=== PATIENT | female | born 1990 | race Hispanic/Latino ===

== ENCOUNTER 2021-06-04 11:37 | Emergency (ER) | payer MEDICAID, SELFPAY ==
--- NOTE | ~2021-06-04 | US_ITS ---
EXAMINATION: US OB <= 14 weeks fetus DATE: 06/04/2021 12:26 INDICATION: Vaginal bleeding TECHNIQUE: Real-time transabdominal and transvaginal obstetric ultrasound. FINDINGS: No prior studies for comparison. The uterus measures 9.3 x 7.5 x 6.9 cm. There is an intrauterine gestational sac, with pole renea ntified. There is a subchorionic hemorrhage measuring 2.4 x 3.2 x 2.1 cm. The crown rump length measu res 0.79 cm, which correlates with a estimated gestational age of 6 weeks 5 days. heart tones are identified measuring 139 BPM. The right ovary is within normal limits measuring 2.6 x 1.9 x 1.7 cm. The left ovary is not visualized. IMPRESSION: 1. SL IUP with an EGA of 6 weeks, 5 days (EDC by current ultrasound of 01/23/2022). 2: Moderate size subchorionic hemorrhage. Reviewed, dictated and finalized at location A. OPERATOR IMPRESSION: 1. SL IUP with an EGA of 6 weeks, 5 days (EDC by current ultrasound of 2). 2: Moderate size subchorionic hemorrhage.
[2021-06-04 11:49] VITALS: BP 121/64; PULSE 78; RESP 16; TEMP 36.2; O2SAT 99
[2021-06-04 12:16] LABS: Basophils Percent Auto 0.5 % (0.2-1.2); Eosinophils Absolute Auto 0.1 K/mm3 (0-0.3); Eosinophils Percent Auto 1.1 % (0-4.4); Hematocrit 38.9 % (37.0-47.0); Hemoglobin 12.9 g/dL (12.0-15.0); Immature Granulocyte Absolute 0.02 K/mm3 (0.00-0.031); Immature Granulocyte Percent A 0.4 % (0-0.5); Lymphocytes Absolute Auto 1.49 K/mm3 (0.9-3.2); Lymphocytes Percent Auto 26.9 % (18.3-44.2); Mean Corpuscular HGB Conc 33.2 g/dl (32-36); Mean Corpuscular Hemoglobin 30.4 pg (26-34); Mean Corpuscular Volume 91.5 fl (80-100); Mean Platelet Volume 10.6 fl (7.4-10.4); Monocytes Absolute Auto 0.3 K/mm3 (0.1-0.6); Monocytes Percent Auto 5.4 % (2.6-8.5); Neutrophils Absolute Auto 3.6 K/mm3 (1.3-6.7); Neutrophils Percent Auto 65.7 % (45.5-73.1); Platelet Count Result 244 k/mm3 (150-375); Red Blood Count 4.25 M/mm3 (4.2-5.4); Red Cell Distribution Width 12.2 % (11.5-14.5); White Blood Count 5.5 K/mm3 (4.5-10.0)
[2021-06-04 12:25] LABS: Add Urine Microscopic? YES; Appearance Urine Cloudy (Clear); Bacteria Urine Trace /hpf; Bilirubin Urine Negative (Negative); Blood Urine 1+ (Negative); Color Urine Yellow (Yellow); Glucose Urine UA Negative (Negative); Ketones Urine Negative (Negative); Leukocyte Esterase Ur 2+ LEU/UL (Negative); Nitrate Urine Negative (Negative); Protein Urine Negative (Negative); Specific Grav Ur 1.009 (1.001-1.035); Squamous Epithelial Cell Urine Few /hpf (Few); Urobilinogen Urine Negative mg/dL (<2.0); WBC Urine 0-3 /hpf
[2021-06-04 12:55] LABS: Alanine Aminotransferase 9 U/L (4-35); Albumin Level 4.5 g/dL (3.5-5.1); Alkaline Phosphatase 58 U/L (38-126); Anion Gap 9 mmol/L (8-16); Aspartate Amino Transferase 24 U/L (14-36); Bilirubin,Total 0.2 mg/dL (0.2-1.3); Blood Urea Nitrogen 6 mg/dL (7-17); Calcium 9.2 mg/dL (8.4-10.2); Carbon Dioxide 26 mmol/L (22-30); Chloride 103 mmol/L (98-107); Estimated CRCL calculation 116 ml/min; Estimated Glomerular Filt Rate > 60; Glucose 98 mg/dL (65-110); Potassium 3.6 mmol/L (3.4-5.0); Sodium 138 mmol/L (137-145)
--- NOTE | 2021-06-04 15:07 | ED.GENADULT ---
HPI - General Adult General Chief complaint: Vaginal Bleeding <Fallon Wild PA-C - Last Filed: 06/04/21 17:01> Stated complaint: not feeling well <Fallon Wild PA-C - Last Filed: 06/04/21 17:01> Time Seen by Provider: 06/04/21 11:56 <Fallon Wild PA-C - Last Filed: 06/04/21 17:01> Source: patient and family () <ERICK Mendoza Last Filed: 06/04/21 17:01> Mode of arrival: ambulatory <Fallon Wild PA-C - Last Filed: 06/04/21 17:01> Limitations: no limitations <Fallon Wild PA-C - Last Filed: 06/04/21 17:01> History of Present Illness HPI narrative: Patient is 22-year-old G1, P0 female presenting with chief complaint of vaginal bleeding with wiping that she has noted over the past 2 days. Patient reports she has also noticed some pain and cramping. Patient reports that she had a positive home test and has not had a menstrual period since April 10. Patient has not yet had an ultrasound confirming intrauterine and has not yet seen a CASE SUPERVISOR. Patient states that she has not made an appointment to be seen at [facility] on the 18th of this month but has not yet been seen by provider. Patient denies passing large blood clots or -like tissues. Patient denies any fever, chills, vomiting, abdominal pain, weakness or any other emergent symptoms. <Fallon Wild PA-C - Last Filed: 06/04/21 17:01> Related Data Home medications: Home Medications Medication Instructions Recorded Confirmed No Home Medications 06/04/21 06/04/21 <Fallon Wild PA-C - Last Filed: 06/04/21 17:01> Allergies/adverse reactions: Allergies Allergy/AdvReac Type Severity Reaction Status Date / Time No Known Allergies Allergy Verified 06/04/21 12:09 <ERICK Mendoza Last Filed: 06/04/21 17:01> Review of Systems Review of Systems: CONSTITUTIONAL: Denies fever, chills, or sweats. EYES: Denies visual changes, redness, or discharge. ENT: Denies rhinorrhea, congestion, sore throat, or otalgia. CARDIOVASCULAR: Denies chest pain, palpitations, or edema. RESPIRATORY: Denies cough or dyspnea. GASTROINTESTINAL: Denies abdominal pain, nausea, vomiting, or diarrhea. GENITOURINARY: Reports vaginal bleeding denies dysuria or hematuria. SKIN: Denies rash or itching. MUSCULOSKELETAL: Denies back pain, joint pain, or myalgia. NEUROLOGIC: Denies headache, numbness, dizziness, or weakness. PSYCHIATRIC: Denies anxiety or depression. <Fallon Wild PA-C - Last Filed: 06/04/21 17:01> Exam Narrative: GENERAL: Well-appearing, well-nourished, and in no acute distress. HEAD: Normocephalic, atraumatic. EYES: PERRLA and EOMI. NECK: Supple. No adenopathy or masses. CHEST: Clear to auscultation. No respiratory distress. No wheezes rales or rhonchi HEART: Regular rate and rhythm. No murmur heard. Normal peripheral pulses. ABDOMEN: Soft, nontender, nondistended, normal active bowel sounds. PELVIC: Patient refused. EXTREMITIES: Normal range of motion. No edema. SKIN: Warm, dry, no rash. NEURO: No focal deficits. Alert and oriented x3. PSYCH: Normal mood and affect. <Fallon Wild PA-C - Last Filed: 06/04/21 17:01> Course Vital Signs Vital signs: Vital Signs Temperature 97.1 F L 06/04/21 11:49 Pulse Rate 78 06/04/21 11:49 Respiratory Rate 16 06/04/21 11:49 Blood Pressure 121/64 06/04/21 11:49 Pulse Oximetry 99 06/04/21 11:49 Temperature 97.1 F L 06/04/21 11:49 Pulse Rate 72 06/04/21 15:49 Respiratory Rate 18 06/04/21 15:49 Blood Pressure 126/78 06/04/21 15:49 Pulse Oximetry 99 06/04/21 15:49 <Fallon Wild PA-C - Last Filed: 06/04/21 17:01> Medical Decision Making MDM Narrative Medical decision making narrative: Patient refused. Patient expressed discomfort with stress. Patient lab work. Patient [facility] 3 times without callback provider. Patient is ready
[2021-06-04 15:49] VITALS: BP 126/78; PULSE 72; RESP 18; O2SAT 99
== END 2021-06-04 15:50 | disposition home or self-care (01) ==
PROVIDERS: Physician Assistant; Emergency Provider General Practice
DX: O46.8X1 Other antepartum hemorrhage, first trimester (principal); Z3A.01 Less than 8 weeks gestation of pregnancy
CPT/HCPCS: 36415; 76801; 80053; 81001; 84702; 85025; 85461; 99284

== ENCOUNTER 2021-12-28 06:15 | Observation (INO) | payer OTHER, SELFPAY ==
[2021-12-28] VITALS (15 sets, daily range): BP systolic 96–111; BP diastolic 54–75; PULSE 69–90; TEMP 36.7–36.8; BMI 31.0
--- NOTE | ~2021-12-28 | US_ITS ---
EXAMINATION: US OB limited w BPP DATE: 12/28/2021 12:41 INDICATION: Variable decelerations. Third trimester. TECHNIQUE: Real-time pelvic ultrasound was performed. COMPARISON: None. FINDINGS: There is a single living fetus in vertex presentation. The placenta is posterior. heart rate i s 142 beats per minute (bpm). The amniotic fluid index is 10.6 cm, which is normal. Biophysical profile performed by the technologist: breathing (30 sec sustained breathing in 30 minutes): 2 out of 2 movement (3 gross body movements in 30 minutes): 2 out of 2 tone (one episode of smefwmj-vklafuwyu-rkbkvyi limb movement): 2 out of 2 Amniotic fluid pocket (2 cm): 2 out of 2 Total score: 8 out of 8 IMPRESSION: 1. Single living fetus in vertex presentation. 2. Biophysical profile 8 out of 8. Reviewed, dictated and finalized at location A.
--- NOTE | 2021-12-28 09:03 | PC.NURSE ---
Using discharge planner line to preadmit pt and do admission information in case pt stays for labor. (Got the same discharge planner again- Sonal ID #[id number])
[2021-12-28 10:51] LABS: Appearance Urine Clear (Clear); Bilirubin Urine Negative (Negative); Blood Urine 2+ (Negative); Color Urine Yellow (Yellow); Glucose Urine UA Negative (Negative); Ketones Urine Negative (Negative); Leukocyte Esterase Ur 1+ LEU/UL (Negative); Nitrate Urine Negative (Negative); Protein Urine Negative (Negative); Specific Grav Ur 1.015 (1.001-1.035); Urobilinogen Urine 0.2 mg/dL (<2.0)
[2021-12-28 11:00] LABS: Mucus Urine Rare /lpf; RBC Urine 0-2 /hpf (0-2); Squamous Epithelial Cell Urine Rare /hpf (Few); WBC Urine 0-3 /hpf
[2021-12-28 11:03] LABS: Add Urine Microscopic? YES
--- NOTE | 2021-12-28 11:52 | PC.NURSE ---
Alina Woo CNM updated on little change to cervix, UA just shows blood. Discussed mostly reactive FHT's with occasional variable decel and 1-2 possible late decels. Order received for BPP and ISABEL.
--- NOTE | 2021-12-28 14:38 | PC.NURSE ---
Using diplomatic interpreter/translator line ( Vinay; ID#[id number]) to go over discharge instructions with pt.
--- NOTE | 2022-01-02 07:40 | PM.OBTRLD ---
OB - Triage/Final Diagnosis Visit Information Date of evaluation: 12/28/21 Reason for evaluation: threatened labor Comments/Additional reasons for admission: I have assessed the risk for this patient, July Morelos, and determined that she would benefit from observation care. Evaluation Laboratory results: Laboratory Tests 12/28/21 10:23 Urine Color Yellow Urine Appearance Clear Urine pH 6.0 Ur Specific [place] 1.015 Urine Protein Negative Urine Glucose (UA) Negative Urine Ketones Negative Ur Blood (Man) 2+ H Urine Nitrate Negative Urine Bilirubin Negative Urine Urobilinogen 0.2 Leukocyte Esterase Rfl 1+ H Urine RBC 0-2 Urine WBC 0-3 Ur Squamous Epith Cells Rare Urine Mucus Rare
== END 2021-12-28 14:50 | disposition home or self-care (01) ==
PROVIDERS: Advanced Practice Midwife; Admitting Provider Obstetrics & Gynecology; Visit Provider Obstetrics & Gynecology
DX: O47.9 False labor, unspecified (principal); Z3A.00 Weeks of gestation of pregnancy not specified
CPT/HCPCS: 76815; 76819; 81001; G0378; G0379

== ENCOUNTER 2021-12-29 02:51 | Inpatient (IN) | payer OTHER, SELFPAY ==
[2021-12-29] VITALS (111 sets, daily range): BP systolic 85–121; BP diastolic 45–80; PULSE 63–122; RESP 16–18; TEMP 36.4–37.1; O2SAT 94–100; BMI 30.4; BMI 31.0
[2021-12-29] MEDS: fentaNYL CITRATE INJ (*CRX) 100 MCG/2 ML VIAL 50 MCG IV PUSH (03:45)
[2021-12-29] MEDS: LACTATED RINGERS 1,000 ML 999 ML IV CONT (03:46)
[2021-12-29] MEDS: LACTATED RINGERS 1,000 ML 125 ML IV CONT ×4 (04:03→08:23)
[2021-12-29] MEDS: fentaNYL CITRATE INJ (*CRX) 100 MCG/2 ML VIAL IV PUSH (05:14)
--- NOTE | 2021-12-29 07:40 | LDADM ---
This patient, July Morelos, was admitted to Labor/Delivery/Recovery 105 on 12/29/21 at 07:40. Plans for labor, pain management and were discussed with patient. Patient/family oriented to hospital policies and general routines including ID bracelet, bed and alarms, visiting hours, pain management, procedures, bathroom and other care routines, personal items, smoking policy, room service/diet and guest tray routines, security routines, and visiting hours. Patient/Family are encouraged to report perceived risks to care and to ask questions if they do not understand what they are told or what they should do. See OBIX for further documentation.
[2021-12-29] MEDS: AMPICILLIN 2 GM/NS 100 ML 2 GM/100 ML BAG IVPB (08:00)
[2021-12-29 08:09] LABS: Basophils Percent Auto 0.4 % (0.2-1.2); Eosinophils Absolute Auto 0.1 K/mm3 (0-0.3); Eosinophils Percent Auto 0.9 % (0-4.4); Hematocrit 31.8 % (37.0-47.0); Hemoglobin 10.3 g/dL (12.0-15.0); Immature Granulocyte Absolute 0.05 K/mm3 (0.00-0.031); Immature Granulocyte Percent A 0.7 % (0-0.5); Lymphocytes Absolute Auto 1.68 K/mm3 (0.9-3.2); Mean Corpuscular HGB Conc 32.4 g/dl (32-36); Mean Corpuscular Hemoglobin 28.9 pg (26-34); Mean Corpuscular Volume 89.3 fl (80-100); Mean Platelet Volume 12.1 fl (7.4-10.4); Monocytes Absolute Auto 0.4 K/mm3 (0.1-0.6); Monocytes Percent Auto 4.6 % (2.6-8.5); Neutrophils Absolute Auto 5.5 K/mm3 (1.3-6.7); Neutrophils Percent Auto 71.4 % (45.5-73.1); Platelet Count Result 219 k/mm3 (150-375); Red Blood Count 3.56 M/mm3 (4.2-5.4); Red Cell Distribution Width 13.7 % (11.5-14.5); White Blood Count 7.6 K/mm3 (4.5-10.0)
[2021-12-29] MEDS: OXYTOCIN 30 UNITS/NS 500 ML 30 UNITS/500 ML BAG 6 UNITS IV CONT (08:29)
--- NOTE | 2021-12-29 08:50 | WPDANESEPP ---
Anes - Eval Pre Procedure Procedure: Labor Epidural Date/Time: 12/29/21 08:50 Surgeon: Pb Preop Diagnosis: Labor Pain Pre Op Diagnosis: contractions Patient Data Age: 31 Gender: F Height: 1.6 m Weight: 79.5 kg Last Vital Signs Temp 36.4 C L 12/29/21 03:16 Pulse 74 12/29/21 08:04 BP 108/70 12/29/21 08:04 Pulse Ox 100 12/29/21 05:00 Allergies Allergy/AdvReac Type Severity Reaction Status Date / Time No Known Allergies Allergy Verified 06/04/21 12:09 Home Medications Medication Instructions Recorded Confirmed Type No Home Medications 06/04/21 12/28/21 History Laboratory Tests 12/29/21 12/29/21 07:58 07:58 WBC 7.6 K/mm3 K/mm3 (4.5-10.0) RBC 3.56 M/mm3 L M/mm3 (4.2-5.4) Hgb 10.3 g/dL L g/dL (12.0-15.0) Hct 31.8 % L % (37.0-47.0) MCV 89.3 fl fl (80-100) MCH 28.9 pg pg (26-34) MCHC 32.4 g/dl g/dl (32-36) RDW 13.7 % % (11.5-14.5) Plt Count 219 k/mm3 k/mm3 (150-375) MPV 12.1 fl H fl (7.4-10.4) Immature Gran % (Auto) 0.7 % H % (0-0.5) Neut % (Auto) 71.4 % % (45.5-73.1) Lymph % (Auto) 22.0 % % (18.3-44.2) [place] % (Auto) 4.6 % % (2.6-8.5) Eos % (Auto) 0.9 % % (0-4.4) Baso % (Auto) 0.4 % % (0.2-1.2) Lymph # (Auto) 1.68 K/mm3 K/mm3 (0.9-3.2) [place] # (Auto) 0.4 K/mm3 K/mm3 (0.1-0.6) Eos # (Auto) 0.1 K/mm3 K/mm3 (0-0.3) Baso # (Auto) 0.0 K/mm3 K/mm3 (0.0-0.1) Abs Immat Gran (auto) 0.05 K/mm3 H K/mm3 (0.00-0.031) Absolute Neuts (auto) 5.5 K/mm3 K/mm3 (1.3-6.7) Absolute Nucleated RBC 0.0 K/mm3 K/mm3 (0.0-0.012) Nucleated RBC % 0.0 % % (0.0-0.2) RPR Pending Patient hx anesthesia problems: none Family hx anesthesia problems: none Results Review: All pre-operative results and documents have been reviewed as part of the pre-operative evaluation. [facility] Family History Family History Other No pertinent family history in first degree relatives Social History Social History Smoking status: Never smoker Second hand tobacco smoke exposure: No Substance use: never Spiritual care concerns: No Exam Day of Procedure 12/29/21 08:50 Patient weight: normal Heart: regular rate and rhythm Lungs: normal air movement Airway: Mallampati scale class II Neurological: alert and oriented Other findings: Paraguayan speaking only
--- NOTE | 2021-12-29 09:35 | WPDHPUPDATE1 ---
History and Physical Update Update Date/Time: 12/29/21 09:35 THis patient is a 31 y/o G1 at 38 weeks gestation who is in labor, AROM was performed. Clear . Pitocin was started. Epidural is placed. . Expectant management History and Physical has been reviewed, including an updated exam of the patient. There are NO changes in the patient's condition. Risks, benefits, and alternatives have been discussed and questions answered. Patient agrees to proceed with procedure.
[2021-12-29] MEDS: AMPICILLIN 1 GM/NS 50 ML 1 GM/50 ML BAG IVPB (12:02)
--- NOTE | 2021-12-29 13:30 | PM.OBPRVD ---
OB - Delivery Note Procedure Procedure: Delivery augmentation: Rupture of Membranes and Pitocin Delivery monitor: External FHT and External Uterine Route of delivery: Laceration Description: Perineal - 2nd Degree Delivery repair: vicryl Quantitative Blood Loss (ml): 169 Anesthesia type: Epidural Disposition: Floor Complications: none Baby Date of : 12/29/21 Time of : 13:13 Weeks of gestation at delivery: 37 gender: Female Weight (pounds): 5 Weight (ounces): 13 presentation: vertex Placenta delivery description: Spontaneous Cord Vessel Description: 3 Vessels score one minute: 9 score five minutes: 9
[2021-12-29] MEDS: IBUPROFEN 600 MG TABLET PO ×2 (13:50→20:28)
[2021-12-29] MEDS: OXYTOCIN 30 UNITS/NS 500 ML 30 UNITS/500 ML BAG 125 UNITS IV CONT (13:50)
[2021-12-29] MEDS: BENZOCAINE 20% AER SPR (*SP) 56 GM CAN 1 SPRAY TOPICAL (17:11)
[2021-12-29] MEDS: WITCH HAZEL 40 PADS 1 PAD TOPICAL (17:11)
[2021-12-29] MEDS: ACETAMINOPHEN 325 MG TABLET 650 MG PO ×2 (17:30→23:15)
--- NOTE | 2021-12-29 19:21 | OBPPTRN ---
Patient was transferred to post room #283 at 1734. This nurse did this patient's assessment and oriented mother to plan of care, safety and security measures, oriented to room and and surroundings, and welcome packet with the use of the ukrainian language line clinical services consultant. Courtney states understanding and knows to point to the language line when she desires to discuss needs or concerns with me. Mother also understands to call out before ambulating to the bathroom. Call light within reach.
[2021-12-30 03:45] VITALS: BP 91/52; PULSE 99; RESP 16; TEMP 36.9
[2021-12-30 04:06] LABS: Hemoglobin 8.6 g/dL (12.0-15.0)
--- NOTE | 2021-12-30 04:30 | PC.NURSE ---
12/30/2021 at 0340. I entered mother's room and found mother with her eyes closed and baby laying next to her on a pillow. I cautioned the parents, with the father of the baby interpreting, why baby should NOT sleep with the parents because of the danger of suffocation and harm that could occur to baby. I asked if the parents have a crib for baby and the father states, Not yet. The father of baby states they were suppose to have a baby shower today but baby came early. I told the parents we will have social service talk to the parents to see if we can help them. Parents state understanding of the importance of having baby sleep on a firm surface and not sleeping with them in the parent's bed.
[2021-12-30 08:00] VITALS: BP 91/57; PULSE 69; RESP 16; TEMP 36.9; O2SAT 100
[2021-12-30] MEDS: POLYSACCHARIDE IRON COMPLEX 150 MG CAPSULE PO ×2 (08:00→16:34)
[2021-12-30] MEDS: IBUPROFEN 600 MG TABLET PO ×3 (08:01→20:55)
[2021-12-30] MEDS: ACETAMINOPHEN 325 MG TABLET 650 MG PO ×3 (08:01→20:57)
[2021-12-30] MEDS: DOCUSATE SODIUM 100 MG CAPSULE PO ×2 (08:01→16:34)
[2021-12-30] MEDS: MULTIVIT/MIN/PREN/FOL AC/IRON TABLET 1 TAB PO (08:01)
--- NOTE | 2021-12-30 10:39 | PM.OBPNVD ---
OB - PN: Subj Subjective Date/time seen: 12/30/21 10:39 Patient comments: no complaints, pain well controlled, incisional pain, tolerating diet and flatus present OB - PN: Obj Data Labs CBC & Chem 7: 12/30/21 03:52 Labs: Laboratory Results - last 24 hr 12/30/21 03:52 Hgb 8.6 L Hct 27.0 L OB - PN A/P Plan day: 1 Plan: routine care Comments: No problems, routine care Time Spent With Patient Time: Total time spent is greater than 50% in coordination of care (as documented) at patient's floor/unit and/or counseling patient: Exam Const: General: comfortable, no acute distress and alert Resp: Effort & Inspection: normal respiratory effort Auscultation: no crackles, no rales and no rhonchi Cardio: Rate: regular rate Heart sounds: no click, no murmurs and no rubs GI: Inspection: non-distended GI Palp: No Tenderness to palpation present (GI) Auscultation: normal bowel sounds Other: Incision - CDI Extrem: General: normal to inspection, no pedal edema and no calf tenderness
[2021-12-30 12:20] VITALS: BP 90/58; PULSE 77; RESP 16; TEMP 37.2; O2SAT 99
--- NOTE | 2021-12-30 15:09 | PCCCNOTE ---
Care Coordination met with pt and FOB to discuss discharge planning. Pt. is Georgian speaking. CC used [employer] (Suzan [id number]). Pt. states that her D/C plan will be to return home with baby and FOB. Pt. was in process of planning her baby shower so she does not have everything needed. Pt. states she does not have a crib or bottles. Pt. has been provided a pack and play and a basket. Pt. states she has no other concerns at this time. She is current with [facility] and has an appointment for baby with Dr. Nickerson. Pt. denies any previous DCFS history. No further need for CC services.
--- NOTE | 2021-12-30 20:30 | PC.NURSE ---
2030: Assumed care of pt at this time.
[2021-12-30 20:50] VITALS: BP 100/70; PULSE 80; RESP 16; TEMP 36.8; O2SAT 99
[2021-12-30] MEDS: WITCH HAZEL 40 PADS 1 PAD TOPICAL (21:00)
[2021-12-30] MEDS: LANOLIN (LANSINOH) 7.5 GM CREAM 1 APPLIC TOPICAL (21:00)
--- NOTE | 2021-12-31 05:49 | PC.NURSE ---
Patient viewed the Urdu discharge video Mother & Baby Care, The First Two Weeks . Patient was given the opportunity and encouraged to ask questions. Patient verbalized understanding of information shared and has been given the mother/baby guide for home reference. Pt is able to communicate her needs effectively through assistance of her significant other. All education provided with Urdu translation from support person this shift. Pt verbalized understanding of info provided.
--- NOTE | 2021-12-31 05:51 | PC.NURSE ---
Sagar Ann [facility]. 04/26/2019, model [id number] carseat provided to parents for safe transport. Encouraged to register carseat with registration card provided with carseat. Father verbalized understanding of info provided.
[2021-12-31] MEDS: ACETAMINOPHEN 325 MG TABLET 650 MG PO (07:04)
[2021-12-31] MEDS: IBUPROFEN 600 MG TABLET PO (07:05)
[2021-12-31] MEDS: MULTIVIT/MIN/PREN/FOL AC/IRON TABLET 1 TAB PO (07:06)
[2021-12-31] MEDS: DOCUSATE SODIUM 100 MG CAPSULE PO (07:06)
[2021-12-31] MEDS: POLYSACCHARIDE IRON COMPLEX 150 MG CAPSULE PO (07:06)
[2021-12-31 07:12] VITALS: BP 98/67; PULSE 56; RESP 16; TEMP 36.7; O2SAT 100
--- NOTE | 2021-12-31 08:13 | PM.OBPNVD ---
OB - PN: Subj Subjective Date/time seen: 12/31/21 08:13 Patient comments: no complaints, pain well controlled and tolerating diet OB - PN: Obj Data Labs CBC & Chem 7: 12/30/21 03:52 OB - PN A/P Plan day: 2 Plan: routine care and discharge home Time Spent With Patient Time: Total time spent is greater than 50% in coordination of care (as documented) at patient's floor/unit and/or counseling patient: Exam Const: General: comfortable and no acute distress Resp: Effort & Inspection: normal respiratory effort Auscultation: no rales, no rhonchi and no wheezes Cardio: Rate: regular rate Heart sounds: no click, no murmurs and no rubs GI: GI Palp: Yes Soft to palpation and No Tenderness to palpation present (GI) Auscultation: normal bowel sounds Extrem: General: normal to inspection, no pedal edema and no calf tenderness
--- NOTE | 2021-12-31 08:18 | PM.OBDSVD ---
DS: Admitting Diagnosis Discharge Date 12/31/21 Admitting Diagnosis term DS: Discharge Diagnosis Discharge Diagnosis (1) Term : Code(s): Z34.90 - Encounter for supervision of normal , unspecified, unspecified trimester Status: Acute OB - DS: Summary OB Procedures : None OB Procedures Intrapartum: Spontaneous Vag Delivery OB Procedures: : None Time Spent with Patient Time attestation: Total time spent providing and/or coordinating discharge services: Discharge Plan Discharge Discharging Clinician: Austin Ambriz Patient Disposition: Home, Self-Care Activity: pelvic rest Diet: regular Patient Instructions: Antibiotic Form Stand Alone Forms: General Discharge Information Follow-up/Referrals: Austin Ambriz MD [Physician] - Discharge Medications: No Action No Home Medications Date of admission: 12/29/21 07:40 Primary Care Provider: PHYSICIAN,STRAIGHTENING ROLL OPERATOR Admitting Provider: Austin Ambriz Attending physician on admission: Austin Ambriz Condition: Stable
[2021-12-31 10:35] LABS: Rapid Plasma Reagin Non-Reactive (NonReactive)
[2022-01-01 10:52] VITALS: BP 97/65; PULSE 69; RESP 18; TEMP 37.3; O2SAT 100
== END 2021-12-31 11:52 | disposition home or self-care (01) | DRG 560 ==
LOC: ANHLDR 07:42 → ANHOB2 17:57
PROVIDERS: Admitting Provider Obstetrics & Gynecology; Visit Provider Obstetrics & Gynecology
DX: O99.824 Streptococcus B carrier state complicating childbirth (principal); O70.1 Second degree perineal laceration during delivery; O76 Abnormality in fetal heart rate and rhythm complicating labor and delivery; Z3A.37 37 weeks gestation of pregnancy; Z37.0 Single live birth
CPT/HCPCS: 36415; 85014; 85018; 85025; 86592; 86850; 86900; 86901; A9270; J0290; J2590; J2795; J3010; J7120

== ENCOUNTER 2025-06-17 14:50 | Emergency (ER) | payer OTHER, SELFPAY ==
[2025-06-17] VITALS (11 sets, daily range): BP systolic 92–106; BP diastolic 52–71; PULSE 79; RESP 18; TEMP 36.3; O2SAT 100
--- NOTE | ~2025-06-17 | US_ITS ---
EXAMINATION: Ultrasound OB, Limited: DATE: 06/17/2025. INDICATION: 35-year-old with last menstrual period on 01/16/2026 and posterior test. 2, para 1. No mention of vaginal bleeding. TECHNIQUE: Transabdominal ultrasound of the uterus with Doppler. were obtained. COMPARISON: None. FINDINGS: Intrauterine uterine gestational sac with crown-rump length of 9.1 mm corresponding to 6 weeks and 6 days. Suspected small hypoechoic area in the inferior aspect of the sac suspicious of small subchorionic bleed. pole and yolk sac are visualized. heart rate at 139 bpm. Normal right and left ovaries with perfusion. 2.8 cm sized physiologic cyst of the right ovary. IMPRESSION: 1. Intrauterine uterine gestational sac with live fetus, 6 weeks 6 days in size. heart rate 1 39 bpm. 2. Suspected small hypoechoic area surrounding the gestational sac on the inferior aspect,? Small subchorionic bleed. Continued ultrasound follow-up is recommended. 3. Normal adnexa with normal perfusion of the ovaries. 2.8 cm cyst of right ovary. Reviewed, dictated and finalized at location [facility] [facility] IMPRESSION: 1. Intrauterine uterine gestational sac with live fetus, 6 weeks 6 days in size . heart rate 1 39 bpm. 2. Suspected small hypoechoic area surrounding the gestational sac on the infer ior aspect,? Small subchorionic bleed. Continued ultrasound follow-up is recomm ended. 3. Normal adnexa with normal perfusion of the ovaries. 2.8 cm cyst of right ova ry.
--- OUTSIDE RECORDS SUMMARY | 2025-06-17 14:53 | XMS_ITS | Clinical Summary ---
Author Organization [facility] Care Team Providers Care Panel Laminator Name Role Phone Unavailable Primary Care Provider Unavailabl e Social History Tobacco Use Types Packs/Day Years Used Date Smoking Tobacco: Never Assessed Comments Unknown Sex and Gender Information Value Date Recorded Sex Assigned at Not on file Legal Sex Female 3:08 PM [employer] Gender Identity Not on file Sexual Orientation Not on file Plan of Treatment Health Maintenance Due Date Last Done Comments Hepatitis C Virus (HCV) Screening 1992 TdaP Immunization 1992 Hepatitis B Immunization (1 of 3 - 19+ 3-dose series) 2011 Pap Smear 2013 Human Papillomavirus (HPV) Immunization (1 - 3-dose SCDM series) 2019 Cervical Cancer Screening (CCS) 2022 HPV/Cotest 2022 Influenza Immunization (#1) 2025 SARS-COV-2 Immunization ( season) 2025 Respiratory Syncytial Virus (RSV) Immunization (Adult) (1 - 1-dose 75+ series) 2067 Meningococcal Immunization (ACWY) Aged Out No longer eligible based on patient's age to complete this topic Pneumococcal Immunization Combined Aged Out No longer eligible based on patient's age to complete this topic Rotavirus Immunization Aged Out No lo nger eligible based on patient's age to complete this topic
--- OUTSIDE RECORDS SUMMARY | 2025-06-17 14:53 | XMS_ITS | Data Portability ---
Author Organization [facility] [place] Address [address] [place] [address] Assessment Encounter Date Assessment Date Assessment LastModified by Organization Details LastModified Time 08/13/2022 08/13/2022 healthy female exam patient declines std testing pap done mammogram at 42 contraception -declines. aware that with periods back could conceive. FU 1 year or prn [email or web address] Not available 08/13/2022 19:21:53 Plan of Treatment Reminders Order Date Submit Date Provider Last Modified By Organization Details Last Modified Time Details Appointments U/S OB DATING/ VIABILI TY 2024 11:00A M ULTRASOUND Not available Not available Not available OB SCREEN 2024 11:30A M YURI ROBERTS MD Not available Not available Not available Lab None recorde d. Referral None recorde d. Procedures None recorde d. Surgeries None recorde d. Imaging US, obstetr ic, follow- up 2021 022 [facility], [address], [address], [place], [address], 12/19/2021 08:46:52 Medication Orders Difluca n 150 mg tablet 2021 022 [facility][id number], [address] [facility], [place], [place], [id number], 08/13/2022 09:12:30 Patient TargetsNo targets recorded. Patient InstructionsNo instructions recorded. Reason for Referral None Reported. Results Created Date Observation Date Name Description Value Unit Range Abnormal Flag Note LastModifiedBy Organization Detail LastModifiedTime 12/19/1912/1812/18/2021 CULTU RE: GROUP B STREP SCREE N, REFLE X SUSCE PTIBI LITY result report SEE RESULT S BELOW abnormal Test: Cultu re: Group B Strep , Refle x Susce ptibi lity ([facility]/ [facility]/K H/V[facility] ) Speci men Sourc e: Vagin a/Rec josee Speci men Type: Vagin al/Re ctal Speci men Date: 2021 4:28 PM Resul t Date: 2021 9:47 AM Resul t Statu s: Final resul t Abnor mal: Yes Resul ting Lab: [facility] [address] [facility] [address] Tel: CULTU RE ----- ----- ----- --- Posit luis for Group B (Abno rmal) Strep tococ cus agala ctiae (Grou p B) (Abno rmal) Clind amyci n is presu med to be resis tant based on detec tion of induc ible clind amyci n resis tance (?Dte st posit luis?) .? Eryth romyc in = resis tant. Cefaz aldo may be used for intra partu m proph ylaxi s in penic illin -yohnaa rgic women at low risk, and Vanco mycin is recom brian d for women at high risk for anaph ylaxi s. Susce ptibi lity testi ng is not neces beltran for these drugs . Not Available [facility] (Lab) [address], [place], [address], 12/22/2021 10:49:32 08/13/19 23 08/13/2022 IMAGE GUIDE D PAP AND HPV REGAR DLESS image guided Pap, HPV regardless of Pap result SEE RESULT S BELOW CASE REPOR T: Cytol ogy Gynec ologi christian Repor t Case: [id number] [address] Provi oh: Parris Painting MD Colle cted: 08/13 1645 Order ing Locat ion: [place] Patho logy Recei racheal: 08/14 0644 First Scree n: Nelly [place], [place] Rescr een: Isabella Keating Speci men: Scree ephraim Pap - Image d, Cervi x STATE MENT OF ADEQU ACY: Satis facto ry for evalu ation Trans forma tion zone compo nent absen t The absen ce of an endoc ervic al compo nent was confi rmed by an addit ional brijesh ner. FINAL DIAGN OSIS: Negat luis for Intra epith elial Lesio n or Janice ballard (NIL) . Funga l organ isms morph ologi love consi stent with Catherine da spp. Elect denilson almaguer sheldon d by Isabella Keating on 2022 at 6:47 PM ----- ----- ----- ----- ----- ----- ----- ----- ----- ----- ----- ----- ----- ----- ----- ----- ----- ---- HPV RESUL TS: HPV mRNA E6/E7 : No HPV mRNA Detec francisca NOTE: This high risk HPV mRNA assay detec ts fourt een high- risk HPV types (16, 18, 31, 33, 35, 39, 45, 51, 52, 56, 58, 59, 66, 68) witho ut diffe renti ation . COMME NT: Note: This speci men was revie wed by a Cytot echno logis t and/o r Patho logis t (as indic ated in this repor t) after evalu ation using the Thinp rep Imagi ng Syste m. CLINI CHRISTIAN INFOR MATIO N: Menst rual Statu s: LMP (if appli cable ): Clini christian Histo ry/Pr eviou s Pap: Type of Neopl angel (if appli cable ): Signi fican t Clini christian Findi ngs: Other Histo ry: Hormo loyd (if appli cable ): PAP EDUCA NASIM L NOTE: The Pap Test is a scree ephraim test with an inher ent false negat luis rate. Liqui d-bas ed sampl ing may decre ase, but will not elimi tania, false negat luis resul ts. A negat luis resul t does not precl ude the prese nce and/o r devel opmen t of disea se, since the prese nce of abnor mal cells in the sampl e depen ds on the locat ion of the lesio n and sampl ing techn ique. Ariella nued regul ar scree ephraim is the best metho d of cance r preve ntion . If repor francisca cytol ogic findi ng do not corre late with physi christian and/o r histo rical findi ngs, furth er inves tigat ion is recom brian d, as clini love moran nted. Not Available [facility] (Lab) [address], [place], [address], 08/15/2022 19:49:41 12/19/19 22 12/18/2021 US, obste tric, follo w-up No observ ation record ed. [email or web address] [place] [address], [place], [address], 12/18/2021 17:40:26 12/19/19 22 12/18/2021 US, obste tric, follo w-up No observ ation record ed. [email or web address] [place] [address], [place], [address], 12/19/2021 08:46:42 12/29/19 22 12/28/2021 US, obste tric, follo w-up No observ ation record ed. [email or web address], [place], [address], 12/28/2021 16:08:05 Result Notes None recorded. Problems Name Problem SNOMED Code Status Onset Date Resolution Date Notes Provider Name and Address Organization Details Recorded Time Low back pain 869634774 Completed Hemalatha Lee [facility] 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 2 12:27:03 Group B Streptoco ccus carrier 62928082863 03 Completed Hemalatha Rosa noell null, [facility] 2 12:27:03 56067490 Completed 202001/18/2022 Hemalatha Lee ehl null, [facility] 2 12:27:08 Uterine size for dates discrepan cy 710011006 Completed 2021 growth next week Hemalatha Rosa noell null, [facility] 2 12:27:03 Uterine size for dates discrepan cy 472081728 Active 2021 growth next week Big Sandy Rosa l null, [facility] 2 12:27:03 Problem Notes None recorded. Procedures Surgical History Date Name Laterality Status Provider Name and Address Organization Details Recorded Time 06/27/2020 Date of Last Pap Smear completed Tammy Collins [facility] 06/14/2021 15:01:37 Imaging Results None recorded. Procedure Notes None recorded. Medical Equipment None Reported. Allergies No known drug allergies Medications Name Sig Start Date Stop Date Status Note LastModified by Organization Details LastModified Time dicloxacilli n 500 mg capsule TAKE 1 CAPSULE BY MOUTH FOUR TIMES DAILY FOR 10 DAYS 08/13 completed Not Available Not Available Not Available fluconazole 150 mg tablet TAKE 1 TABLET BY MOUTH ONCE active Not Available Not Available No t Available metronidazol e 500 mg tablet Take 1 tablet twice a day by oral route for 7 days. 09/17 completed Not Available Not Available Not Available Vitamin 27 mg iron-0.8 mg tablet Take 1 tablet every day by oral route. 08/13 completed Not Available Not Available Not Available 11/01 completed Not Available Not Available Not Available Vitals Date Recorded Body height Body mass index (BMI) Body weight Systolic And Diastolic Provider Name and Address Organization Details Last Updated DateTime 08/13/2022 157.48 cm 26.7 kg/m2 70910.49 g 111/76 mm[Hg] [facility] 08/13/2022 16:31:35 Date Recorded Body height Body mass index (BMI) Body weight Systolic And Diastolic Provider Name and Address Organization Details Last Updated DateTime 12/18/2021 157.48 cm 32.2 kg/m2 13089.257 12 g 98/64 mm[Hg] [facility] 12/18/2021 16:53:06 Date Recorded Body height Body mass index (BMI) Body weight Systolic And Diastolic Provider Name and Address Organization Details Last Updated DateTime 12/25/2021 157.48 cm 32.2 kg/m2 84440.257 12 g 104/72 mm[Hg] [facility] 12/25/2021 17:55:28 Date Recorded Body height Body mass index (BMI) Body weight Systolic And Diastolic Provider Name and Address Organization Details Last Updated DateTime 02/11/2022 157.48 cm 29.4 kg/m2 42530.37 g 94/64 mm[Hg] Tammy Collins [facility] 02/11/2022 16:24:52 Social History None recorded. Functional Status None recorded. Mental Status None recorded. Family History Relationship Description Onset Age of this Age Resolved Age Notes LastModified by Organization Details LastModified Time Maternal Grandmother Diabetes mellitus [email or web address] Not available 2020 15:02:26 Mother Hypercholest erolemia [email or web address] Not available 2020 15:02:38 Medical History No medical history recorded. Gynecological History Statement/Question Response Abnormal Pap N Date of Last Pap Smear 06/27/2020 Current Control Method None Desired Control Method None Date of LMP 07/10/2022 Obstetrics History GPAL:G 1 P 1 0 0 1 Type Value Full Term 1 Living 1 Total 1 Past Encounters Encounter ID Performer Location Encounter Start Date Encounter Closed Date Diagnosis/Indication Diagnosis SNOMED-CT Code Diagnosis ICD10 Code Diagnosis IMO Codes Diagnosis Note [id number] Trev Ambriz MD [place] [address],[place] [address] 06/14/2021 14:36:41 06/15/2021 10:37:26 Amenorrhea 31255098 N91.2 This patient is a 30-year-ol d female 1 about 8 weeks gestation who presents for amenorrhea and the screening. She has a viable intrauteri ne gestation. She has a screening ultrasound today. To return in 4 weeks for initial visit. Venereal d isease screening 285091909 Z11.3 [id number] Trev Ambriz MD [place] [address],[place] [address] 06/14/2021 14:40:01 06/14/2021 16:27:43 [id number] Parris Chang MD [place] [address],[place] [address] 07/24/2021 15:58:24 07/24/2021 17:24:59 [id number] Parris Chang MD [place] [address],[place] [address] 07/24/2021 15:59:28 07/24/2021 16:48:10 Routine care 560324001 Z34.02 screening 2437 69608 Z36.89 [id number] Parris Chang MD [place] [address],[place] [address] 08/21/2021 15:30:53 08/21/2021 16:41:41 screening 277597862 Z36.3 [id number] Meera Lopez CNM [place] [address],[place] [address] 08/23/2021 15:59:49 08/27/2021 19:34:35 Routine care 119413884 Z34.92 [id number] Meera Lopez CNM [place] [address],[place] [address] 09/17/2021 15:58:09 09/18/2021 16:01:56 Routine care 468850669 Z34.92 [id number] Parris Chang MD [place] [address],[place] [address] 10/15/2021 12:27:07 10/15/2021 13:01:16 Routine care 203588291 Z34.02 [id number] Trev Ambriz MD [place] [address],[place] [address] 11/01/2021 11:26:34 11/01/2021 12:21:18 Routine care 021738412 Z34.03 [id number] Trev Ambriz MD [place] [address],[place] [address] 11/15/2021 16:45:18 11/16/2021 14:23:05 Routine care 523780572 Z34.03 [id number] MD Racquel [place] [address],[place] [address] 11/26/2021 17:22:11 11/26/2021 17:52:29 Routine care 190138586 Z34.02 [id number] MD Racquel [place] [address],[place] [address] 12/12/2021 16:08:20 12/13/2021 10:03:21 Routine care 972172311 Z34.02 Uterine si ze for dates discrepancy 208535167 O26.849 [id number] MD Racquel [place] [address],[place] [address] 12/18/2021 16:06:30 12/18/2021 17:10:05 Uterine size for dates discrepancy 788311130 O26.843 O43.103 Z3A.36 [id number] MD Brenda [place] [address],[place] [address] 12/18/2021 16:06:46 12/18/2021 17:17:17 Routine care 858631176 Z34.02 [id number] MD Racquel [place] [address],[place] [address] 12/25/2021 17:01:17 12/27/2021 15:23:14 Routine care 839460562 Z34.02 Candidiasis of vagina 72 646885 B37.3 [id number] Trev Ambriz MD [place] [address] [address] 02/11/2022 15:57:13 02/11/2022 17:00:10 care 978595354 Z39.2 this patient is a 31-year-ol d female who presents for follow-up. She is 1 month post from a vaginal . She is undecided about contracept ion. She is both breast and bottle feeding. Her bleeding is stopped. She has not had intercours e. Her mood is good and her baby is well. Otherwise she has no complaints . She is going to consider contracept ion give us call. [id number] Parris Chang MD [place] [address] [address] 08/13/2022 16:10:01 08/14/2022 16:10:49 Gynecologic examination 25358118 Z01.419 Z11.51 Health Concerns Section Related Observation LastModified by Organization Detai ls LastModified Time None Recorded Concern Status LastModified by Organization Details LastModified Time None Recorded Advance Directives Directive None Recorded Payers Insurance Date Sequence Insurance Name Policy Number Policy Jacques Covered Member ID Jacques Member ID Guarantor Name 07/24/2021 1 *SELF PAY* Yo sdivia Mcallister 06/16/2025 1 MEDICAID-[place]: [place] [employer] Yosdivia Mcallister [id number] Yosdivia Mcallister 06/16/2025 1 [facility] (MEDICAID HMO) [id number] Yosdivia Mcallister [id number] Yosdivia Mcallister Notes Date Note Type Note Provider Name and Address Organization Details Recorded Time 12/25/2021 text/html Generic HPI TemplateReported by Patient Parris Chang MD [address], [place], [address], [facility] 12/26/2021 09:23:29 02/11/2022 text/html VisitReported by Patient this patient is a 31-year-old female who presents for follow-up. She is 1 month post from a vaginal . She is undecided about contraception. She is both breast and bottle feeding. Her bleeding is stopped. She has not had intercourse. Her mood is good and her baby is well. Otherwise she has no complaints. She is going to consider contraception give us call. Trev Ambriz MD [address], [place], [address], [facility] 02/11/2022 16:55:31 08/13/2022 text/html Patient is a 32yo who presents for an annual exam. , just had first period. DOing fine. No concerns. last pap-2019 sexually active-y contraception-none seatbelts-y exercise-y depression-denies domestic violence-denies tobacco-n concerns- Parris Chang MD [address], [place], [address], [facility] 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 Status 07/24/20 21 1 O Positive 145 CLOSED Fetus Data First Name Last Name Admitted to NICU Weight (g) Sex Living Outcome Pediatric Complications Fetus ID Race Codes Race Delivery Type 2636.50 35 F true Full Term [id number] Vaginal Delivery Problems Problem Notes maori speaking only, husba nd speaks moderate Frisian Problem Name Start Date End Date Resolution Snomed Code Not e Low back pain 842170542 Uterine size for dates discrepancy 12/12/2021 414829344 growth next wee k Group B Streptococcus carrier 7859893505488 Santhosh Calculation Initial Santhosh Date Initial Exam Date Initial Exam Provider Initial Ultrasound Date Last Menstrual Period Date Ultra Sound Weeks Gestation 01/15/2022 07/24/2021 06/14/2021 04/10/2021 9 Eighteen To Twenty Week Santhosh Update Ultra Sound Date Fundal Height At Umbil Quickening Date Ultra Sound Latest Weeks Gestation Final Santhosh Confirmed By Final Santhosh Confirmed Date Final Santhosh Date Ultra Sound Latest Days Gestation 0 [email or web address] 07/24/2021 01/16/20 22 0 Pre-geovanny Flowsheet Flowsheet Date 07/24/2021 Hardin Score Blood Edema Fundus Height Fundus Units Glucose Ketones Leukocytes Nitrite Labor Signs Protein Cervic Dilation Cervic Effacement Cervic Station neg none none trace Type Weight in lbs Pre/Post Dialysis Refused Weight 146.620291650121 BP Diastolic BP Location Tested BP Systolic BP Type 69 101 Fetus Heart Rate Present Fetus Movement A Yes Comments July is a 31yo G1 at 15. 0 who presents for care. Her history is uncomplicated. SHe feels well except for some upper back pain- will try heat and massage. Anatomy US next visit. Discuss vaccines next visit. PNL today. Flowsheet Date 07/24/2021 Hardin Score Blood Edema Fundus Height Fundus Units Glucose Ketones Leukocytes Nitrite Labor Signs Protein Cervic Dilation Cervic Effacement Cervic Station Type Weight in lbs Pre/Post Dialysis Refused BP Diastolic BP Location Tested BP Systolic BP Type Fetus Heart Rate Present Fetus Movement Comments Flowsheet Date 08/21/2021 Hardin Score Blood Edema Fundus Height Fundus Units Glucose Ketones Leukocytes Nitrite Labor Signs Protein Cervic Dilation Cervic Effacement Cervic Station Type Weight in lbs Pre/Post Dialysis Refused BP Diastolic BP Location Tested BP Systolic BP Type Fetus Heart Rate Present Fetus Movement Comments Flowsheet Date 08/23/2021 Hardin Score Blood Edema Fundus Height Fundus Units Glucose Ketones Leukocytes Nitrite Labor Signs Protein Cervic Dilation Cervic Effacement Cervic Station none Type Weight in lbs Pre/Post Dialysis Refused Weight 151.176936762057 BP Diastolic BP Location Tested BP Systolic BP Type 70 122 Fetus Heart Rate Present Fetus Movement A Yes Comments Pt not feeling well. Fatigue & cough. Pt instructed to have covid test and call us with results. byers has been doing well. Baseline anatomy done on Friday. Flowsheet Date 09/17/2021 Hardin Score Blood Edema Fundus Height Fundus Units Glucose Ketones Leukocytes Nitrite Labor Signs Protein Cervic Dilation Cervic Effacement Cervic Station none 23 Type Weight in lbs Pre/Post Dialysis Refused Weight 158.116590603363 BP Diastolic BP Location Tested BP Systolic BP Type 74 107 Fetus Heart Rate Present A 146 Fetus Movement A Yes Comments Doing well. Did have some cr amping yesterday but resolved with fluids and rest. Precautions given. Will measure for maternity belt d/t generalized back and pelvic discomfort. Plan to return in 4 weeks for routine visit and gtt. Tammy in to translate. Flowsheet Date 10/15/2021 Hardin Score Blood Edema Fundus Height Fundus Units Glucose Ketones Leukocytes Nitrite Labor Signs Protein Cervic Dilation Cervic Effacement Cervic Station neg none 30 none trace Type Weight in lbs Pre/Post Dialysis Refused Weight 163.023020842864 BP Diastolic BP Location Tested BP Systolic BP Type 60 96 Fetus Heart Rate Present A 135 Fetus Movement A Yes Comments Doing ok except back pain, w aiting on maternity belt. GCT next visit- was going to do today but didn't drink drink and has to leave. Discussed Tdap - will do. Flowsheet Date 11/01/2021 Hardin Score Blood Edema Fundus Height Fundus Units Glucose Ketones Leukocytes Nitrite Labor Signs Protein Cervic Dilation Cervic Effacement Cervic Station 29 Type Weight in lbs Pre/Post Dialysis Refused Weight 167.560278512285 BP Diastolic BP Location Tested BP Systolic BP Type 61 R arm 96 sitting Fetus Heart Rate Present A 145 Fetus Movement A Yes Comments Has multiple vague complaint s of pain in the lower abdomen. Given recommendations. Patient is difficult to reach. Flowsheet Date 11/15/2021 Hardin Score Blood Edema Fundus Height Fundus Units Glucose Ketones Leukocytes Nitrite Labor Signs Protein Cervic Dilation Cervic Effacement Cervic Station 31 Type Weight in lbs Pre/Post Dialysis Refused Weight 172.857987276145 BP Diastolic BP Location Tested BP Systolic BP Type 58 R arm 93 sitting Fetus Heart Rate Present A 145 Fetus Movement A Yes Comments given recommendations On con servative treatment low back pain. Flowsheet Date 11/26/2021 Hardin Score Blood Edema Fundus Height Fundus Units Glucose Ketones Leukocytes Nitrite Labor Signs Protein Cervic Dilation Cervic Effacement Cervic Station neg none 34 Type Weight in lbs Pre/Post Dialysis Refused Weight 170.749815391691 BP Diastolic BP Location Tested BP Systolic BP Type 66 93 Fetus Heart Rate Present A 145 Fetus Movement A Yes Comments Doing well. Tdap done. Unsur e re ctx. Good FM. Discussed GBS at 36w. Flowsheet Date 12/12/2021 Hardin Score Blood Edema Fundus Height Fundus Units Glucose Ketones Leukocytes Nitrite Labor Signs Protein Cervic Dilation Cervic Effacement Cervic Station neg none 32 Type Weight in lbs Pre/Post Dialysis Refused Weight 173.872566495294 BP Diastolic BP Location Tested BP Systolic BP Type 66 95 Fetus Heart Rate Present A 140 Fetus Movement A Yes Comments Doing well. GBS next, discus sed. S<D, new finding, will do growth US. Flowsheet Date 12/18/2021 Hardin Score Blood Edema Fundus Height Fundus Units Glucose Ketones Leukocytes Nitrite Labor Signs Protein Cervic Dilation Cervic Effacement Cervic Station Type Weight in lbs Pre/Post Dialysis Refused BP Diastolic BP Location Tested BP Systolic BP Type Fetus Heart Rate Present Fetus Movement Comments Flowsheet Date 12/18/2021 Hardin Score Blood Edema Fundus Height Fundus Units Glucose Ketones Leukocytes Nitrite Labor Signs Protein Cervic Dilation Cervic Effacement Cervic Station neg none 33 none trace 0cm 20% -3 Type Weight in lbs Pre/Post Dialysis Refused Weight 176.108318350970 BP Diastolic BP Location Tested BP Systolic BP Type 64 98 Fetus Heart Rate Present A 160 Fetus Movement A Yes Comments Doing well except RICHARDS. BP gre at. Will hydrate and try tylenol. GBS done and discussed. US 20% with MCI. Will deliver before needs another growth. Flowsheet Date 12/25/2021 Hardin Score Blood Edema Fundus Height Fundus Units Glucose Ketones Leukocytes Nitrite Labor Signs Protein Cervic Dilation Cervic Effacement Cervic Station neg none 33 none trace 0cm 50% Type Weight in lbs Pre/Post Dialysis Refused Weight 176.629833291650 BP Diastolic BP Location Tested BP Systolic BP Type 72 104 Fetus Heart Rate Present A 160 Fetus Movement A Yes Comments Doing well. NO concerns. Magdalena ast pump given. GBS pos, discussed. Yeast infection on exam, does admit to itching. diflucan. labor precautions. Menstrual History Last Menstrual Date Menses Monthly On Bcp Conception Prior Menses Frequency Hcg Plus Date Menarche Onset Age 0904/10/2021 Genetic Screening And Infection History Question Response Note Mental Retardation/Autism false Patient's Age Will Be 35 Years Or Older At Estim ated Date of Delivery false Thalassemia (Cypriot, Uzbek, Mediterranean, Or Background): MCV < 80 false Neural Tube Defect (Meningomyelocele, Spina Bifi da, Or Anencephaly) false Congenital Heart Defect false Down Syndrome false Km-Sachs (eg, Amish, Cajun, Bangladeshi-Terlingua) f alse Sung Disease false Sickle Cell Disease Or Trait () false Hemophilia Or Other Blood Disorders false Muscular Dystrophy false Cystic Fibrosis false Chance's Chorea false Intellectual Disability/Autism false If Yes, Was Person Tested For Fragile X? false Other Inherited Genetic Or Chromosomal Disorder false Maternal Metabolic Disorder (eg, Type 1 Diabetes , PKU) false Patient Or Baby's Father Had A Child With Defects Not Listed Above false Recurrent Loss, Or A Stillbirth false Medications (including Suppl ements, Vitamins, Herbs, OTC Drugs), Illicit/Recreational Drugs, Alcohol false If Yes, Agent(s) And Strength/Dosage false Any Other Genetic History false Live With Someone With TB Or Exposed To TB false Patient Or Partner Has History Of Genital Herpes false Rash Or Viral Illness Since Last Menstrual Perio d false History Of STD, Gonorrhea, Chlamydia, HPV, Syphi lis false Other Infection History false History of HIV false History of Hepatitis false Prior GBS-infected child false Hemoglobinopathy Or Carrier false Other Structural Defect false Recent Travel History Outside of Country false Delivery Information Delivery Date Delivery Type Labor Anesthesia Weeks Gestation Incision Type Labor Labor Length Hrs Delivered By Post Complications Tubal Sterilization [facility] Trev Ambriz MD srom, gbs+ Discharge Information Feeding Method Contraceptive Method Maternal HG B and HCT Levels
--- NOTE | 2025-06-17 14:58 | ED_ITS ---
HPI - General Chief complaint: OB/Uterine Contractions Stated complaint: 8 weeks , abd. pain Time Seen by Provider: 06/17/25 14:58 Focused HPI: Patient is a 35-year-old, non Kenyan-speaking female presents to the ER with right lower abdominal pain during . She reports she is approximately 8 weeks but has not seen an OBGYN yet. Patient endorses nausea and vomiting. She reports this is her 2nd with 1 live . Patient denies any medical history relevant to this ER visit. Denies any recent fevers, urinary symptoms, or diarrhea. Patient reports she has also been waking up in the morning with significant right arm pain. GENERAL: Well-appearing, well-nourished, and in no acute distress. HEAD: Normocephalic, atraumatic. CHEST: Clear to auscultation. ?No respiratory distress. HEART: Regular rate and rhythm.? NEURO: ?Alert and oriented x3. : LLQ abdominal pain with palpation, + BS Patient screened in triage and initial orders placed.? ?Additional care and disposition to be based upon?diagnostic testing and treatment. Related Data Allergies Allergy/AdvReac Type Severity Reaction Status Date / Time No Known Allergies Allergy Verified 06/17/25 15:04 Review of Systems 2 Review of Systems: All systems reviewed & are unremarkable except as noted in HPI and below PMFSH Family History Family History Other No pertinent family history in first degree relatives Social History Social History Smoking status: Never smoker Second hand tobacco smoke exposure: No Substance use: never Spiritual care concerns: No Exam 2 Narrative: GENERAL: Well appearing, well-nourished, non-toxic, in no acute distress. HEAD: Normocephalic, atraumatic. NECK: Supple. No adenopathy, no masses. RESPIRATORY: Airway patent, respirations nonlabored. Clear to auscultation bilaterally, no rales, rhonchi, wheezing. CARDIOVASCULAR: Regular rate and rhythm without murmurs, rubs, or gallops. Peripheral pulses 2+ and equal bilaterally. ABDOMINAL: Soft, right lower quadrant tenderness, nondistended, no hepatosplenomegaly. Normoactive BS. MUSCULOSKELETAL: Moves all extremities. Strength/ROM intact without gross deformities. SKIN: Warm, dry, normal color. No rashes. NEURO: A&O X3. Speech clear. Cranial nerves II-XII intact. No ataxic movements. PSYCHIATRIC: Appropriate mood and affect. Normal interaction. Course Vital Signs Vital signs: Vital Signs Temperature 36.3 C L 06/17/25 14:52 Pulse Rate 79 06/17/25 14:52 Respiratory Rate 18 06/17/25 14:52 Blood Pressure 102/68 06/17/25 14:52 Pulse Oximetry 100 06/17/25 14:52 Oxygen Delivery Room Air 06/17/25 14:52 Temperature 36.3 C L 06/17/25 14:52 Pulse Rate 79 06/17/25 14:52 Respiratory Rate 18 06/17/25 14:52 Blood Pressure 102/68 06/17/25 14:52 Pulse Oximetry 100 06/17/25 14:52 Oxygen Delivery Room Air 06/17/25 14:52 MDM - OB/Uterine Contractions MDM Narrative Medical decision making narrative: Patient is a 35-year-old, non Kenyan-speaking female presents to the ER with right lower abdominal pain during . She reports she is approximately 8 weeks but has not seen an OBGYN yet. Patient endorses nausea and vomiting. She reports this is her 2nd with 1 live . Patient denies any medical history relevant to this ER visit. Denies any recent fevers, urinary symptoms, or diarrhea. Patient reports she has also been waking up in the morning with significant right arm pain. Labs Ordered: CBC, CMP, beta hCG, UA Imaging Ordered: Pelvic US Medications Ordered: Keflex p.o. Results: Pt's US indicates 1. Intrauterine uterine gestational sac with live fetus, 6 weeks 6 days in size. heart rate 1 39 bpm. 2. Suspected small hypoechoic area surrounding the gestational sac on the inferior aspect,? Small subchorionic bleed. Continued ultrasound follow-up is recommended. 3. Normal adnexa with normal perfusion of the ovaries. 2.8 cm cyst of right ovary. Diagnosis: Intrauterine , urinary tract infection, subchorionic hemorrhage Consults: OBGYN, outpatient Patient Education/Shared MDM: Results of lab work and imaging shared with patient and her family. She will be given her 1st dose of oral antibiotics here in the ER. Patient strongly advised to maintain hydration status upon discharge and follow-up with her OBGYN as soon as possible. She will be discharged home with a prescription for Keflex. Strict return precautions provided. Patient verbalized understanding and is in agreement with plan. Vital signs stable at time of discharge. All questions answered. Differential Diagnosis Differential diagnosis: Likely other (Urinary tract infection, threatened miscarriage, ectopic , intrauterine ) Lab Data Attestation: I reviewed the patient's lab results. 06/17/25 15:12 06/17/25 15:12 Labs: Lab Results 06/17/25 Range/Units 15:12 WBC 5.9 (4.5-10.0) K/mm3 RBC 4.19 L (4.2-5.4) M/mm3 Hgb 12.8 D (12.0-15.0) g/dL Hct 38.1 (37.0-47.0) % MCV 90.9 (80-100) fl MCH 30.5 (26-34) pg MCHC 33.6 (32-36) g/dl RDW 12.5 (11.5-14.5) % Plt Count 254 (150-375) k/mm3 MPV 10.6 H (7.4-10.4) fl Immature Gran % (Auto) 0.3 (0-0.5) % Neut % (Auto) 65.4 (45.5-73.1) % Lymph % (Auto) 25.4 (18.3-44.2) % [place] % (Auto) 7.7 (2.6-8.5) % Eos % (Auto) 0.7 (0-4.4) % Baso % (Auto) 0.5 (0.2-1.2) % Lymph # (Auto) 1.49 (0.9-3.2) K/mm3 [place] # (Auto) 0.5 (0.1-0.6) K/mm3 Eos # (Auto) 0.0 (0-0.3) K/mm3 Baso # (Auto) 0.0 (0.0-0.1) K/mm3 Abs Immat Gran (auto) 0.02 (0.00-0.031) K/mm3 Absolute Neuts (auto) 3.8 (1.3-6.7) K/mm3 Absolute Nucleated RBC 0.000 (0.0-0.012) K/mm3 Nucleated RBC % 0.0 (0.0-0.2) % Sodium 135 L (137-145) mmol/L Potassium 3.4 (3.4-5.0) mmol/L Chloride 101 (98-107) mmol/L Carbon Dioxide 25 (22-30) mmol/L Anion Gap 9 (4-12) mmol/L BUN 9 (7-17) mg/dL Creatinine 0.50 L (0.7-1.0) mg/dL Estim Creat Clear Calc 115 ml/min Estimated GFR > 60 (59 - ) Glucose 70 (65-110) mg/dL Calcium 8.9 (8.4-10.2) mg/dL Total Bilirubin 0.3 (0.2-1.3) mg/dL AST 26 (14-36) U/L ALT 8 (6-35) U/L Alkaline Phosphatase 57 (38-126) U/L Total Protein 8.1 (6.3-8.2) g/dL Albumin 4.4 (3.5-5.1) g/dL Beta HCG, Quant 01761.00 mIU/ML Urine Color Yellow (Yellow) Urine Appearance Clear (Clear) Urine pH 6.5 (5.0-9.0) Ur Specific [place] 1.006 (1.001-1.035) Urine Protein Negative (Negative) mg/dL Urine Glucose (UA) Negative (Negative) mg/dL Urine Ketones Negative (Negative) mg/dL Ur Blood (Man) Negative (Negative) Urine Nitrate Negative (Negative) Urine Bilirubin Negative (Negative) Urine Urobilinogen 0.2 (<2.0) mg/dL Leukocyte Esterase Rfl 3+ H (Negative) IRVING/UL Urine RBC 0-2 (0-2) /hpf Urine WBC 21-50 H (0-3) /hpf Ur Squamous Epith Cells Occasional (Few) /hpf Urine Bacteria 1+ H /hpf Urine Casts 0-2 Imaging Data Attestation: I personally reviewed and interpreted this imaging study as follows: Radiologist's impression: Impressions Ultrasound 06/17/25 16:40 IMPRESSION: 1. Intrauterine uterine gestational sac with live fetus, 6 weeks 6 days in size. heart rate 1 39 bpm. 2. Suspected small hypoechoic area surrounding the gestational sac on the inferior aspect,? Small subchorionic bleed. Continued ultrasound follow-up is recommended. 3. Normal adnexa with normal perfusion of the ovaries. 2.8 cm cyst of right ovary. Discharge Plan Discharge Clinical Impression: Confirmed intrauterine on ultrasound, Subchorionic hemorrhage in first trimester, Urinary tract infection affecting Patient Disposition: Home Condition: Stable Instructions: Antibiotic Form, Urinary Tract Infection in (ED) Additional Instructions: Please return to the ER with any worsening symptoms. Follow-up with an OBGYN as soon as possible. Please complete your full dose of oral antibiotics. You may take Reglan as needed for nausea. Please take Tylenol as needed for pain control. Remember to drink lots of water. Patient Language: Thai Prescriptions: New metoclopramide HCl [Reglan] 10 mg tablet 10 mg PO Q6H PRN (Reason: nausea and vomiting) Qty: 60 0RF cephalexin 500 mg capsule 500 mg PO Q8H 7 Days Qty: 21 0RF Follow-up/Referrals: Dionte Rodriguez MD [Physician, [employer] [facility]] Madan Ponce MD [Primary Care Provider, Family Practice] Stand Alone Forms: Work/School Release IP Time of Disposition: 17:11
[2025-06-17 15:21] LABS: Hematocrit 38.1 % (37.0-47.0); Hemoglobin 12.8 g/dL (12.0-15.0); Immature Granulocyte Percent A 0.3 % (0-0.5); Lymphocytes Absolute Auto 1.49 K/mm3 (0.9-3.2); Mean Corpuscular HGB Conc 33.6 g/dl (32-36); Mean Corpuscular Hemoglobin 30.5 pg (26-34); Mean Corpuscular Volume 90.9 fl (80-100); Nucleated Red Blood Cells Absolute Auto 0.000 K/mm3 (0.0-0.012); Nucleated Red Blood Cells Perc 0.0 % (0.0-0.2); Platelet Count Result 254 k/mm3 (150-375); Red Blood Count 4.19 M/mm3 (4.2-5.4); White Blood Count 5.9 K/mm3 (4.5-10.0)
[2025-06-17 15:30] LABS: Add Urine Microscopic? YES; Appearance Urine Clear (Clear); Glucose Urine UA Negative (Negative); Leukocyte Esterase Ur 3+ LEU/UL (Negative); Nitrate Urine Negative (Negative); Non Pathogenic Casts 0-2; Specific Grav Ur 1.006 (1.001-1.035)
[2025-06-17 15:40] LABS: Alanine Aminotransferase 8 U/L (6-35); Albumin Level 4.4 g/dL (3.5-5.1); Alkaline Phosphatase 57 U/L (38-126); Anion Gap 9 mmol/L (4-12); Aspartate Amino Transferase 26 U/L (14-36); Bilirubin,Total 0.3 mg/dL (0.2-1.3); Blood Urea Nitrogen 9 mg/dL (7-17); Calcium 8.9 mg/dL (8.4-10.2); Carbon Dioxide 25 mmol/L (22-30); Chloride 101 mmol/L (98-107); Estimated CRCL calculation 115 ml/min; Estimated Glomerular Filt Rate > 60; Glucose 70 mg/dL (65-110); Potassium 3.4 mmol/L (3.4-5.0); Sodium 135 mmol/L (137-145); Total Protein 8.1 g/dL (6.3-8.2)
[2025-06-17] MEDS: CEPHALEXIN 500 MG CAPSULE PO (16:58)
[2025-06-17] MEDS: METOCLOPRAMIDE HCL 10 MG TABLET PO (17:28)
[2025-06-17] MEDS: ACETAMINOPHEN 500 MG TABLET 1000 MG PO (17:29)
== END 2025-06-17 17:36 | disposition home or self-care (01) ==
PROVIDERS: Emergency Provider Registered Nurse; PCP Emergency Medicine
DX: O46.8X1 Other antepartum hemorrhage, first trimester (principal); O23.41 Unspecified infection of urinary tract in pregnancy, first trimester; N39.0 Urinary tract infection, site not specified; Z3A.08 8 weeks gestation of pregnancy
CPT/HCPCS: 36415; 76801; 80053; 81001; 84702; 85025; 87086; 99284; A9270

== ENCOUNTER 2025-06-30 16:47 | Emergency (ER) | payer OTHER, SELFPAY ==
[2025-06-30 16:58] VITALS: BP 89/68; PULSE 95; RESP 16; TEMP 36.4; O2SAT 100
--- NOTE | 2025-06-30 20:10 | ED_ITS ---
HPI - General Chief complaint: Urogenital-Female Stated complaint: 8 weeks , vaginal bleeding, no cramping Time Seen by Provider: 06/30/25 19:53 Source: patient and translator/interpreter Mode of arrival: ambulatory Limitations: language barrier (spanish interpreter/translator used.) History of Present Illness HPI Narrative: Patient is a 35-year-old female presents to the emergency department complaining of accidentally taking meth upper stone around 2:00 p.m. today. Patient's her last menstrual period was May 31 and she is around 8 weeks and 3 days , has had ultrasound to confirm an intrauterine , this is her 2nd and she has 1 living child, notes that she has a scheduled [facility]. Patient notes that she was and some dizziness and headache earlier today and was going to go take her medications and they spilled and she accidentally took with upper stone which she had from many weeks ago when she was considering terminating the but never ended up doing so and accidentally took the medication around 2:00 p.m. today. Patient denies any chest pain, difficulty breathing, vaginal bleeding, abdominal pain, pelvic pain. Patient denies any current complaints notes that overall she feels well. Related Data Allergies Allergy/AdvReac Type Severity Reaction Status Date / Time No Known Allergies Allergy Verified 06/30/25 17:05 [facility] Family History Family History Other No pertinent family history in first degree relatives Social History Social History Smoking status: Never smoker Second hand tobacco smoke exposure: No Substance use: never Spiritual care concerns: No Discharge Plan Discharge Patient Language: Arabic Prescriptions: No Action metoclopramide HCl [Reglan] 10 mg tablet 10 mg PO Q6H PRN (Reason: nausea and vomiting) Qty: 60 0RF cephalexin 500 mg capsule 500 mg PO Q8H 7 Days Qty: 21 0RF Follow-up/Referrals: Madan Ponce MD [Physician, Family Practice] Course Vital Signs Vital signs: Vital Signs Temperature 97.5 F L 06/30/25 16:58 Pulse Rate 95 06/30/25 16:58 Respiratory Rate 16 06/30/25 16:58 Blood Pressure 89/68 L 06/30/25 16:58 Pulse Oximetry 100 06/30/25 16:58 Oxygen Delivery Room Air 06/30/25 16:58 Temperature 97.5 F L 06/30/25 16:58 Pulse Rate 76 06/30/25 20:45 Respiratory Rate 19 06/30/25 20:45 Blood Pressure 101/61 06/30/25 20:45 Pulse Oximetry 100 06/30/25 20:45 Oxygen Delivery Room Air 06/30/25 16:58
[2025-06-30 20:45] VITALS: BP 101/61; PULSE 76; RESP 19; O2SAT 100
--- NOTE | 2025-06-30 21:19 | ED_ITS ---
HPI - General Adult General Chief complaint: Urogenital-Female Stated complaint: 8 weeks , vaginal bleeding, no cramping Time Seen by Provider: 06/30/25 19:53 Source: patient and blow mold technician Mode of arrival: ambulatory Limitations: language barrier (senior android developer used.) History of Present Illness HPI narrative: Patient is a 35-year-old female presents to the emergency department complaining of accidentally taking meth upper stone around 2:00 p.m. today. Patient's her last menstrual period was May 31 and she is around 8 weeks and 3 days , has had ultrasound to confirm an intrauterine , this is her 2nd and she has 1 living child, notes that she has a scheduled [facility]. Patient notes that she was and some dizziness and headache earlier today and was going to go take her medications and they spilled and she accidentally took with upper stone which she had from many weeks ago when she was considering terminating the but never ended up doing so and accidentally took the medication around 2:00 p.m. today. Patient denies any chest pain, difficulty breathing, vaginal bleeding, abdominal pain, pelvic pain. Patient denies any current complaints notes that overall she feels well. Related Data Allergies Allergy/AdvReac Type Severity Reaction Status Date / Time No Known Allergies Allergy Verified 06/30/25 17:05 Review of Systems Review of Systems: A 10 system review of systems was completed on the patient and is negative except for what is stated in the HPI. Nursing and ancillary documentation was reviewed. [facility] Family History Family History Other No pertinent family history in first degree relatives Social History Social History Smoking status: Never smoker Second hand tobacco smoke exposure: No Substance use: never Spiritual care concerns: No Exam Narrative: CONST: No acute distress. Well nourished. HENMT: Head is normocephalic and atraumatic. Moist mucous membranes. No posterior oropharynx erythema. EYES: No scleral icterus. No conjunctival injection or pallor. PERRL. NECK: No meningeal signs. RESP: Able to speak in full sentences. Normal respiratory effort. CTAB. CARDIO: Regular rate. Regular rhythm. 2+ DP and radial pulses bilaterally. GI: Nondistended. No tenderness to palpation. Soft. : No CVA tenderness to palpation. SKIN: No rashes or lesions noted on exposed skin. NEURO: Oriented x3. Moves all extremities. EXTREM/MSK/BACK: No pedal edema. PSYCH: Normal affect. Course Vital Signs Vital signs: Vital Signs Temperature 97.5 F L 06/30/25 16:58 Pulse Rate 95 06/30/25 16:58 Respiratory Rate 16 06/30/25 16:58 Blood Pressure 89/68 L 06/30/25 16:58 Pulse Oximetry 100 06/30/25 16:58 Oxygen Delivery Room Air 06/30/25 16:58 Temperature 98 F 06/30/25 21:50 Pulse Rate 72 06/30/25 21:50 Respiratory Rate 16 06/30/25 21:50 Blood Pressure 110/60 06/30/25 21:50 Pulse Oximetry 98 06/30/25 21:50 Oxygen Delivery Room Air 06/30/25 16:58 MDM MDM Narrative Medical decision making narrative: Patient presents with the above complaint. Initial vitals are remarkable for no significant abnormalities. Physical examination as noted above. Plan discussed: OB consultation. I spoke with OB on-call Dr. Mccollum who notes nothing acutely emergent to be done at this time, would recommend the patient to follow-up in the near future with them, strict return precautions including any significant vaginal bleeding, new or concerning or intractable pain, fevers. Patient informed of plan of care, notes that she talk with her Ob in [place] told her that maybe she can get a progesterone shot to reverse this, and I told her that I will ask OB if that is an option available to her. Ob notes that the patient can take 200 mg of Prometrium twice daily for the next 1 week. Patient was reassessed at the bedside. No changes in physical exam. Patient is in no acute distress. The patient has remained stable throughout the entire ED visit. Patient instructed to follow up with OB on Friday. Patient counseled on: false reassurance from an emergency department evaluation; no current evidence of a medical emergency; return immediately for any new, recurrent, worsening, concerning, or refractory symptoms. Patient prescribed progesterone. Prescription sent to preferred pharmacy. Medications discussed with patient. Additional verbal and printed discharge instructions were given and discussed with the patient. Patient verbally acknowledges understanding of condition and discharge instructions. All questions were answered to the patient's satisfaction. Patient is in agreement with the plan of care. The patient is stable for discharge and was discharged without incident. Differential Diagnosis Differential Diagnosis: Accidental ingestion. Discharge Plan Discharge Clinical Impression: Accidental drug ingestion Qualifiers: Encounter type: initial encounter Qualified Code(s): T50.901A - Poisoning by unspecified drugs, medicaments and biological substances, accidental (unintentional), initial encounter Patient Disposition: Home Condition: Stable Instructions: Antibiotic Form, Mifepristone (By mouth) Additional Instructions: Follow-up with Ob within the next 1 week, call the scheduled appointment. Ob did note that he can take progesterone 200 mg twice daily for the next 1 week, which I have prescribed to you. Rest and stay well-hydrated. Return immediately to the emergency department for any new or concerning symptoms especially vaginal bleeding to the severity of saturating more than 1 pad per hour for more than 1 hour, fever, new or concerning or intractable pain, or any emergent concerns for life, limb, eyesight. Acuda a cherry jose de seguimiento con bolden obstetra dentro de la pr?xima semana y llame a la jose programada. Bolden obstetra le indic? que puede destiny progesterona 200 mg dos veces al d?a светлана la pr?xima semana, la cual le he recetado. Descanse y mant?ngase hanna hidratada. Regrese de inmediato a urgencias ante cualquier s?ntoma nuevo o preocupante, especialmente sangrado vaginal con cherry intensidad que satura m?s de cherry compresa por hora светлана m?s de cherry hora, fiebre, dolor nuevo, preocupante o intratable, o cualquier emergencia que afecte bolden noemy, tanner extremidades o bolden vista. Patient Language: Irish Prescriptions: New progesterone micronized 200 mg capsule 200 mg PO BID 7 Days Qty: 14 0RF No Action metoclopramide HCl [Reglan] 10 mg tablet 10 mg PO Q6H PRN (Reason: nausea and vomiting) Qty: 60 0RF cephalexin 500 mg capsule 500 mg PO Q8H 7 Days Qty: 21 0RF Follow-up/Referrals: Rivera Mccollum MD [Physician, [facility]] - 07/04/25 Madan Ponce MD [Physician, Family Practice] Time of Disposition: 21:24
[2025-06-30 21:50] VITALS: BP 110/60; PULSE 72; RESP 16; TEMP 36.6; O2SAT 98
== END 2025-06-30 21:50 | disposition home or self-care (01) ==
PROVIDERS: Emergency Provider Student in an Organized Health Care Education/Training Program
DX: O9A.211 Injury, poisoning and certain other consequences of external causes complicating pregnancy, first trimester (principal); T50.901A Poisoning by unspecified drugs, medicaments and biological substances, accidental (unintentional), initial encounter; Z3A.08 8 weeks gestation of pregnancy
CPT/HCPCS: 99283

== ENCOUNTER 2025-07-04 11:42 | Outpatient (CLI) | payer MEDICAID, SELFPAY | END 2025-07-04 11:43 | disposition home or self-care (01) | PROVIDERS: Visit Provider Nurse Practitioner Family | DX: O20.9 Hemorrhage in early pregnancy, unspecified (principal); Z3A.00 Weeks of gestation of pregnancy not specified | CPT/HCPCS: 36415; 84702; 86900; 86901 ==

== ENCOUNTER 2025-07-07 10:20 | Outpatient (CLI) | payer MEDICAID, SELFPAY | END 2025-07-07 10:21 | disposition home or self-care (01) | PROVIDERS: Visit Provider Nurse Practitioner Family | DX: O20.9 Hemorrhage in early pregnancy, unspecified (principal); Z3A.00 Weeks of gestation of pregnancy not specified | CPT/HCPCS: 36415; 84702 ==